=== PATIENT | female | born 1990 | race Two or more races ===

== ENCOUNTER 2018-09-29 11:08 | Outpatient (CLI) | payer OTHER ==
[2018-09-29] MEDS ORDERED: PRENATAL 19 TA1 EACH PO (11:33)
== END 2018-09-29 18:27 | disposition home or self-care (01) ==
LOC: OBS/DEL 11:08
DX: O47.1 False labor at or after 37 completed weeks of gestation (principal); Z34.03 Encounter for supervision of normal first pregnancy, third trimester

== ENCOUNTER 2018-10-01 09:06 | Inpatient (IN) | payer OTHER ==
[~2018-10-01] VITALS: Ht 157.5 cm; Wt 81.2 kg
[~2018-10-01 09:06] MED LIST: PRENATAL 19 TA1 EACH PO
== END 2018-10-03 15:04 | disposition home or self-care (01) | DRG 807 ==
LOC: LDR 09:06 → OB/GYN 09:06
PROVIDERS: ADMIT Obstetrics & Gynecology
PROC: 10E0XZZ Delivery of Products of Conception, External Approach (ICD-10-PCS; principal; 2018-10-01)
PROC: 0UQMXZZ Repair Vulva, External Approach (ICD-10-PCS; 2018-10-01)
PROC: 3E033VJ Introduction of Other Hormone into Peripheral Vein, Percutaneous Approach (ICD-10-PCS; 2018-10-01)
PROC: 4A1HXCZ Monitoring of Products of Conception, Cardiac Rate, External Approach (ICD-10-PCS; 2018-10-01)
DX: O71.82 Other specified trauma to perineum and vulva (principal); Z37.0 Single live birth; Z3A.39 39 weeks gestation of pregnancy